=== PATIENT | male | born 2000 | race Two or more races ===

== ENCOUNTER → 2023-02-06 | Outpatient (CLI) | payer OTHER | LOC: M RAD 07:44 | PROVIDERS: ATTEND Physician Assistant | DX: M54.59 Other low back pain (principal) ==

== ENCOUNTER 2023-06-12 08:14 | Emergency (ER) | payer OTHER ==
[~2023-06-12] VITALS: Ht 175.3 cm; Wt 87.7 kg
[2023-06-12] MEDS ORDERED: MORPHINE 4 MG/ML 1ML VIAL IV ONE (10:55)
[2023-06-12] MEDS ORDERED: LIDOCAINE 5% (LIDODERM) PATCH TD ONE (10:55)
[2023-06-12] MEDS ORDERED: methylPREDNISolone 125MG 2ML VIAL IV ONE (10:55)
[2023-06-12 11:38] LABS: BASO % 0.4 % (0.0-1.0); EOS # 0.1 10^3/uL (0.0-0.5); HEMATOCRIT 43.6 % (42.0-52.0); HEMOGLOBIN 15.6 g/dl (13.5-17.5); LYMPH # 2.2 10^3/uL (1.5-5.0); LYMPH % 42.8 % (24.0-44.0); MEAN CORPUSCULAR HEMOGLOBIN 32.2 pg (27.0-33.0); MEAN CORPUSCULAR HGB CONC 35.8 g/dl (32.0-36.5); MEAN CORPUSCULAR VOLUME 90.1 fl (80.0-96.0); MONO # 0.4 10^3/uL (0.0-0.8); MONO % 6.9 % (2.0-8.0); NEUTROPHILS # 2.5 10^3/uL (1.5-8.5); NEUTROPHILS % 48.7 % (36.0-66.0); PLATELET COUNT, AUTOMATED 274 10^3/uL (150-450); RED BLOOD COUNT 4.84 10^6/uL (4.30-6.10); WHITE BLOOD COUNT 5.1 10^3/uL (4.0-10.0)
[2023-06-12 11:51] LABS: ERYTHROCYTE SEDIMENTATION RATE 4 mm/hr (0-15)
[2023-06-12] MEDS ORDERED: diazePAM 10 MG TAB PO ONE (13:45)
[2023-06-12] MEDS ORDERED: METH-1165 PO (14:39)
[2023-06-12] MEDS ORDERED: ASPE4PAD TOP (14:39)
[2023-06-12] MEDS ORDERED: NAPR-837 PO (14:39)
[2023-06-12] MEDS ORDERED: MEDR4PAK PO (14:39)
[2023-06-12] MEDS ORDERED: TRAM50TA2 PO (14:39)
[2023-06-12 14:47] VITALS: BP 109/63; TEMP 97; O2SAT 98
== END 2023-06-12 14:52 | disposition home or self-care (01) ==
LOC: M ED 08:14
DX: M51.17 Intervertebral disc disorders with radiculopathy, lumbosacral region (principal)
CPT/HCPCS: 72110; 72141; 72146; 72148; 80047; 85025; 85652; 86140; 96374; 96375; 99284; J2930

== ENCOUNTER 2023-09-11 11:34 | Emergency (ER) | payer OTHER ==
[~2023-09-11] VITALS: Ht 175.3 cm; Wt 91.3 kg
[~2023-09-11 11:34] MED LIST: ASPE4PAD TOP; MEDR4PAK PO; METH-1165 PO; NAPR-837 PO; TRAM50TA2 PO
[2023-09-11] MEDS ORDERED: diazePAM 5MG TABLET PO ONE (16:40)
[2023-09-11] MEDS ORDERED: LIDOCAINE 5% (LIDODERM) PATCH TD ONE (16:40)
[2023-09-11] MEDS ORDERED: KETOROLAC 30 MG/ML 1ML VIAL IM ONE (16:40)
[2023-09-11] MEDS ORDERED: MEDR4PAK PO (17:35)
[2023-09-11] MEDS ORDERED: NAPR-837 PO (17:35)
[2023-09-11 17:44] VITALS: BP 130/75; TEMP 97.9; O2SAT 98
== END 2023-09-11 17:45 | disposition home or self-care (01) ==
LOC: M ED 11:34
DX: M54.40 Lumbago with sciatica, unspecified side (principal); Z79.899 Other long term (current) drug therapy
CPT/HCPCS: 96372; 99283; J1885

== ENCOUNTER 2024-04-13 12:38 | Emergency (ER) | payer OTHER ==
[~2024-04-13] VITALS: Ht 175.3 cm; Wt 90.0 kg
[2024-04-13] MEDS ORDERED: IBUP-1114 PO (12:58)
[2024-04-13] MEDS: KETOROLAC 30 MG/ML 1ML VIAL IM ONE (13:53)
[2024-04-13] MEDS: ACETAMINOPHEN TAB 650MG DOSE (2X325MG) PO ONE (13:53)
[2024-04-13 14:25] VITALS: BP 126/67; TEMP 97.4; O2SAT 97
[2024-04-13] MEDS ORDERED: METH-1165 PO (14:40)
[2024-04-13] MEDS ORDERED: KETO10TAB PO (14:40)
== END 2024-04-13 14:47 | disposition home or self-care (01) ==
LOC: M ED 12:38
DX: M54.32 Sciatica, left side (principal); M51.36 Other intervertebral disc degeneration, lumbar region; S33.5XXA Sprain of ligaments of lumbar spine, initial encounter; Y92.9 Unspecified place or not applicable; Y93.9 Activity, unspecified; Y99.0 Civilian activity done for income or pay; Z79.1 Long term (current) use of non-steroidal anti-inflammatories (NSAID); Z79.2 Long term (current) use of antibiotics; Z79.899 Other long term (current) drug therapy
CPT/HCPCS: 96372; 99283; J1885